=== PATIENT | male | born 1995 ===

== ENCOUNTER 2018-05-07 02:26 | Emergency (ER) | payer SELFPAY ==
[2018-05-07] MEDS ORDERED: TYLENOL PO ONE (04:45)
[2018-05-07] MEDS ORDERED: DUONEB *Not for PRN Use IH ONE ×2 (04:46)
[2018-05-07 04:53] VITALS: BP 130/78
== END 2018-05-07 09:20 | disposition left against medical advice (07) ==
LOC: ED 02:26
DX: R06.00 Dyspnea, unspecified (principal); Z53.21 Procedure and treatment not carried out due to patient leaving prior to being seen by health care provider
CPT/HCPCS: 93005; 93010